=== PATIENT | male | born 1950 | race Caucasian/White ===

== ENCOUNTER 2016-06-15 10:13 | Emergency (ER) | payer MEDICARE ==
[~2016-06-15] VITALS: Ht 167.6 cm; Wt 74.6 kg
[2016-06-15 10:15] VITALS: BP 119/71; PULSE 97; RESP 16; TEMP 98.2; O2SAT 99
[2016-06-15] MEDS ORDERED: METF1000 PO (10:24)
[2016-06-15] MEDS ORDERED: TETANUS/DIPHTHERIA TOXOID ADULT 0.5 ML VIAL IM ONE (10:30)
[2016-06-15] MEDS ORDERED: CLIN1CAP6 PO (10:38)
[2016-06-15] MEDS ORDERED: CIPR500T2 PO (10:38)
--- NOTE | 2016-06-15 10:38 | PD ---
HPI Chief Complaint: Laceration/Skin Injury Time Seen by Provider: 10:22 Travel History International Travel<30 days: No Contact w/Intl Traveler<30days: No Traveled to known affect area: No History of Present Illness HPI 66-year-old male presents after stepping on a nail about a week ago and now is having pain and redness in his foot. He states his diabetes has been at his baseline with the sugars in the 270 range. He states he didn't check it yet this morning. He states that he was wearing his boot when he stepped on the nail and doesn't know how long he had did it and just noticed it when he took his boot off and saw the nail. He denies other concurrent complaints. Quality pain is sharp. Severity is moderate. Pain is worse with movement. PFSH Past Medical History Diabetes: Yes Patient Takes Glucophage: Yes Diminished Hearing: No Tetanus Vaccination: Unknown Influenza Vaccination: No Past Surgical History Surgical History: No Previous Surgery Social History Alcohol Use: Yes (SOCIALLY) Tobacco Use: No Allergies-Medications (Allergen,Severity, Reaction): Coded Allergies: No Known Allergies (Unverified , 06/15/16) Reported Meds & Prescriptions Reported Meds & Active Scripts Active Clindamycin (Clindamycin HCl) 300 Mg Cap 300 Mg PO TID 7 Days Ciprofloxacin (Ciprofloxacin HCl) 500 Mg Tab 500 Mg PO BID 7 Days Reported Metformin (Metformin HCl) 1,000 Mg Tab 1,000 Mg PO BIDPC With meals Review of Systems Except as stated in HPI: all other systems reviewed are Neg Physical Exam Narrative GENERAL: Well-nourished, well-developed patient. SKIN: Erythema noted to dorsal aspect between hallux and second toe without associated abscess or crepitus, puncture wound noted to plantar aspect between hallux and second toe HEAD: Normocephalic and atraumatic. EYES: No injection or drainage. ENT: No nasal drainage noted. NECK: Supple, trachea midline. CARDIOVASCULAR: Regular rate and rhythm RESPIRATORY: No increased effort. No accessory muscle use. EXTREMITIES: Pain with palpation of in her web space between first and second digit with associated skin changes as above, no pain with other joints , neurovascularly intact, compartments soft. NEUROLOGICAL: Awake and alert. Motor and sensory grossly within normal limits other than notes decreased sensation from his diabetes in his feet. Normal speech. Data Data Last Documented VS Vital Signs Date Time Temp Pulse Resp B/P Pulse Ox O2 Delivery O2 Flow Rate FiO2 06/15/16 10:15 98.2 97 16 119/71 99 Orders Foot, Complete ([id number]) (06/15/16 ) Tetanus/Diphtheria Tox Adult (Tetanus/Di (06/15/16 10:30) MDM Medical Decision Making Medical Screen Exam Complete: Yes Emergency Medical Condition: Yes Medical Record Reviewed: Yes (past history confirmed) Interpretation(s) Last 24 hours Impressions Foot X-Ray 06/15/16 0000 Signed Impressions: Service Date/Time: Wednesday, June 15, 2016 10:52 - CONCLUSION: mild arthritic change. Soft tissue swelling. No fracture or foreign body. Luis Hernandez MD Differential Diagnosis Foreign body, cellulitis, tetanus.... Narrative Course We will check x-ray and update tetanus. Given patient was wearing shoe he will need to Pseudomonas coverage in addition to staph and strep xray no foreign body or fracture, Patient denies any new complaints, no spread of redness, Patient happy with care, all questions answered. Patient knows that follow up is incumbent on them and to return to the emergency room immediately if new or worsening symptoms develop. Patient given strict return precautions, vitals reviewed and are normal, agrees to further workup as an outpatient. Diagnosis Primary Impression: Cellulitis of foot Patient Instructions: General Instructions Additional Instructions: monitor glucose for possible low levels while on antibiotic, return as needed, follow with primary for recheck tommorrow Med/Other Pt SpecificInfo: Prescription(s) given Scripts Clindamycin 300 Mg [id number] Mg PO TID 7 Days Ref 0 Prov:Erica Ortiz MD 06/15/16 Ciprofloxacin 500 Mg [id number] Mg PO BID 7 Days Ref 0 Prov:Erica Ortiz MD 06/15/16 Disposition: 01 DISCHARGE HOME Condition: Stable Erica Ortiz MD June 15, 2016 10:38
--- NOTE | 2016-06-15 11:16 | RADHPO ---
EXAM DATE/TIME: 06/15/2016 10:52 [facility] COMPARISON: No previous studies available for comparison. INDICATIONS : Left foot pain after stepping on a nail MEDICAL HISTORY : Diabetes mellitus type II. SURGICAL HISTORY : None. ENCOUNTER: Initial ACUITY: 2 weeks PAIN SCORE: 10/10 LOCATION: Left bottom of big toe FINDINGS: There is no evidence of foreign body, fracture or dislocation. Mild soft tissue swelling in the media l forefoot. There are couple small periarticular erosions involving the medial aspect of the great to e interphalangeal joint. CONCLUSION: mild arthritic change. Soft tissue swelling. No fracture or foreign body. Luis Hernandez MD on June 15, 2016 at 11:09 Board Certified Radiologist. This report was verified electronically.
== END 2016-06-15 12:20 | disposition home or self-care (01) ==
LOC: PHEFT 10:13
DX: L03.116 Cellulitis of left lower limb (principal); Z23 Encounter for immunization
CPT/HCPCS: 73630; 90471; 90714

== ENCOUNTER 2017-04-26 14:23 | Emergency (ER) | payer MEDICARE ==
[~2017-04-26] VITALS: Ht 167.6 cm; Wt 76.0 kg
[~2017-04-26 14:23] MED LIST: CIPR500T2 PO; CLIN300C5 PO; METF1000 PO
[2017-04-26 14:27] VITALS: BP 132/60; PULSE 76; RESP 16; TEMP 97.6; O2SAT 99
[2017-04-26] MEDS ORDERED: HYDR-2376 PO (14:45)
[2017-04-26] MEDS ORDERED: GLIM4TAB PO (14:45)
[2017-04-26] MEDS ORDERED: LISI-519 PO (14:45)
[2017-04-26] MEDS ORDERED: BACT800T5 PO (15:10)
[2017-04-26] MEDS ORDERED: AUGM875T3 PO (15:10)
[2017-04-26 15:15] VITALS: BP 125/82
--- NOTE | 2017-04-26 15:21 | PD ---
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 He stepped on a screw 6 months ago and got infection there. He says it kind of went away but now is flared up again. He is redness and warmth in that area. He does not have pain because he is diabetic neuropathy on a daily basis. The ecology professor debrided away some tissue and told to go to the emergency room. Moderately severe. Duration of this flare is 2 weeks. No alleviating factors. He denies documented fever. PFSH Past Medical History Diabetes: Yes Patient Takes Glucophage: No Diminished Hearing: No Hypertension: Yes Influenza Vaccination: No ?: Not Social History Alcohol Use: Yes (SOCIALLY) Tobacco Use: No Substance Use: No Allergies-Medications (Allergen,Severity, Reaction): Coded Allergies: No Known Allergies (Unverified Adverse Reaction, Unknown, 04/26/17) Reported Meds & Prescriptions Reported Meds & Active Scripts Active Bactrim DS (Sulfamethoxazole-Trimethoprim) 800-160 Mg Tab 1 Tab PO BID Augmentin (Amoxicillin-Clavulanate) 875-125 Mg Tab 1 Tab PO BID Reported Hydrocodone-Acetaminophen 7.5-300 Mg Tab 1 Tab PO Q6H PRN Lisinopril 5 Mg Tab 5 Mg PO DAILY Glimepiride 4 Mg Tab 4 Mg PO DAILY Take with breakfast or first main meal Review of Systems General / Constitutional: No: Fever Eyes: No: Visual changes HENT: No: Headaches Cardiovascular: No: Chest Pain or Discomfort Respiratory: No: Shortness of Breath Gastrointestinal: No: Abdominal Pain Genitourinary: No: Dysuria Musculoskeletal: No: Pain Skin: No Rash Neurologic: Positive: Sensory Disturbance, No: Weakness Psychiatric: No: Depression Endocrine: No: Polydipsia Hematologic/Lymphatic: No: Easy Bruising Physical Exam Narrative GENERAL: Well-nourished, well-developed patient in no apparent distress. SKIN: Focused skin assessment reveals no rash and nodules. Skin is Warm and dry. HEAD: Atraumatic. Normocephalic. EYES: Pupils equal and round. No scleral icterus. No injection or drainage. ENT: No nasal bleeding or discharge. Mucous membranes pink and moist. NECK: Trachea midline. No JVD. CARDIOVASCULAR: Regular rate and rhythm. No murmur appreciated. RESPIRATORY: No accessory muscle use. Clear to auscultation. Breath sounds equal bilaterally. GASTROINTESTINAL: Abdomen soft, non-tender, nondistended. Hepatic and splenic margins not palpable. MUSCULOSKELETAL: Examination left foot reveals that there is an open wound adjacent to the left fifth toe. There is yellow fibrinous coding inside. There is some ligamentous structure exposed. I do not see exposed bone. There is no active drainage. Nothing amenable to culture at this time. There is surrounding erythema on the dorsum of the foot. There is swelling of the left fifth toe. Sensation is decreased. No clubbing. No cyanosis. No edema. NEUROLOGICAL: Awake and alert. No obvious cranial nerve deficits. Motor grossly within normal limits. Normal speech. PSYCHIATRIC: Appropriate mood and affect; insight and judgment normal. Data Data Last Documented VS Vital Signs Date Time Temp Pulse Resp B/P (MAP) Pulse Ox O2 Delivery O2 Flow Rate FiO2 04/26/17 14:27 97.6 76 16 132/60 (84) 99 MDM Medical Decision Making Medical Screen Exam Complete: Yes Emergency Medical Condition: Yes Medical Record Reviewed: Yes Differential Diagnosis Diabetic foot infection, cellulitis, abscess Narrative Course I have reviewed the patient's electronic medical record. Patient has significant diabetic foot infection. I recommended inpatient admission for IV antibiotics and evaluation for possible osteomyelitis. He may require further debridement. I explained all this to him and he refuses. He does not want to stay in the hospital. He is going to sign out AGAINST MEDICAL ADVICE. He knows that this may likely worsen and oral and about etc. I will write for more not ideal treatment. I feel it's better than nothing so I'm going to do that. Prescribed him 10 days of Augmentin in 10 days of Bactrim DS Diagnosis Primary Impression: Diabetic infection of left foot Additional Instructions: Return if you change your mind Return if you worsen Follow-up with podiatry and family physician Med/Other Pt SpecificInfo: Prescription(s) given Scripts Sulfamethoxazole-Trimethoprim (Bactrim DS) 800-160 Mg Tab 1 TAB PO BID for Infection, #20 TAB 0 Refills Prov: Pedro Wright MD 04/26/17 Amoxicillin-Clavulanate (Augmentin) 875-125 Mg Tab 1 TAB PO BID for Infection, #20 TAB 0 Refills Prov: Pedro Wright MD 04/26/17 Disposition: 07 AGAINST MEDICAL ADVICE Pedro Wright MD Apr 26, 2017 15:21
== END 2017-04-26 15:52 | disposition left against medical advice (07) ==
LOC: PHED 14:23
DX: E11.621 Type 2 diabetes mellitus with foot ulcer (principal); L08.9 Local infection of the skin and subcutaneous tissue, unspecified; E11.40 Type 2 diabetes mellitus with diabetic neuropathy, unspecified; I10 Essential (primary) hypertension; Z79.84 Long term (current) use of oral hypoglycemic drugs
CPT/HCPCS: 99283